=== PATIENT | female | born 1985 | race Caucasian/White ===

== ENCOUNTER 2017-01-16 13:35 | Emergency (ER) | payer BC ==
[2017-01-16 14:32] LABS: Hematocrit 35 % (35-47); Hemoglobin 11.4 g/dl (12.0-16.0); Mean Corpuscular HGB Conc 32 g/dl (31-36); Mean Corpuscular Hemoglobin 25 pg (27-31); Mean Corpuscular Volume 78 fL (80-97); Mean Platelet Volume 8 um3 (7.4-10.4); Red Blood Count 4.52 10^6/ul (4.0-5.4); Red Cell Distribution Width 16 % (10.5-15); White Blood Count 10.7 10^3/ul (3.5-10.8)
[2017-01-16] MEDS ORDERED: Ketorolac INJ* 30 MG/ML 1 ML VIAL IV ONE (14:54)
[2017-01-16] MEDS ORDERED: NS 0.9% 1000 ML* 1,000 ML IV ONE ×2 (14:54→17:10)
--- NOTE | 2017-01-16 15:12 | RAD ---
Indication: Abdominal pain. Real-time sonography of the pelvis was performed. The study was performed utilizing endovaginal technique. The uterus measures 8.1 x 3.3 x 5.6 cm. Endometrial echo measures 3 mm. Right ovary measures 3.3 x 1.9 x 2.8 cm with a follicle in the right ovary measuring up to 2.2 cm. Left ovary measures 3.2 x 1.1 x 1.1 mm. IMPRESSION: Follicle in the right ovary measuring up to 2.2 cm. No adnexal masses are noted.
[2017-01-16 15:15] LABS: ALT 11 U/L (7-52); AST 15 U/L (13-39); Albumin 4.1 g/dL (3.2-5.2); Alkaline Phosphatase 92 U/L (34-104); Anion Gap 9 mmol/L (2-11); BUN/Creatinine Ratio 13.4 (8-20); Blood Urea Nitrogen 9 mg/dL (6-24); C Reactive Protein 8.81 mg/L (< 5.00); CO2 Carbon Dioxide 23 mmol/L (22-32); Calcium 9.1 mg/dL (8.6-10.3); Chloride 106 mmol/L (101-111); EGFR African American 132.9 (>60); EGFR Non-African American 103.3 (>60); Globulin 3.1 g/dL (2-4); Glucose 101 mg/dL (70-100); Lipase 25 U/L (11.0-82.0); Potassium 3.4 mmol/L (3.5-5.0); Sodium 138 mmol/L (133-145); Total Protein 7.2 g/dL (6.4-8.9)
[2017-01-16 15:51] LABS: Urine Bilirubin Negative (Negative); Urine Glucose Negative (Negative); Urine Nitrite Negative (Negative)
[2017-01-16] MEDS ORDERED: Iohexol 300* (CONTRAST) 10 ML SDV IV ONE (17:34)
--- NOTE | 2017-01-16 20:48 | RAD ---
Indication: Lower abdominal pain, bloating. Contrast: Administered 91.0 ml of OMNIPAQUE 300 mg/ml CT of the abdomen and pelvis was performed without oral or IV contrast administration. Coronal and sagittal reconstructed images were obtained. Lung bases demonstrate no pleural fluid, nodules or masses. Heart is of normal size without evidence of pericardial effusion. Liver is normal in size. No focal lesions or intrahepatic ductal dilatation is noted. The gallbladder demonstrates no calcified gallstones. No pericholecystic fluid or wall thickening is identified. The common duct is not dilated. The pancreas demonstrates no mass or pancreatic duct dilatation. The spleen is normal in size. No adrenal lesions are noted. The kidneys demonstrate symmetric nephrograms without focal lesions. No retroperitoneal lymphadenopathy is noted. No dilated loops of bowel are noted. CT of the pelvis demonstrates no retroperitoneal or pelvic lymphadenopathy. The uterus and ovaries are unremarkable. No inguinal hernias are noted. The urinary bladder is otherwise unremarkable. The colon is filled with stool. Contrast is noted in the right colon with no evidence of bowel obstruction. IMPRESSION: No abnormal masses or fluid collections are identified.
--- NOTE | 2017-01-16 21:01 | ED ---
I, Lauri Carson, scribed for Mg Fajardo MD on 01/16/17 at 1647 . Progress - Progress Note Progress Note: This patient was signed out from Dr. Pickard, pending disposition, awaiting Transvaginal US. Pt has been experiencing intermittent abdominal pain for about a month. Transvaginal US, as read by radiologist, reveals: Follicle in the right ovary measuring up to 2.2 cm. No adnexal masses are noted.. Re-Evaluation - Re-Evaluation First Eval Re-Evaluation Time: 16:51 Comment: Discussed why she presents and that a CT abd/pel will be done. Course/Dx - Course Course Of Treatment: DISCUSSED RESULTS WITH PATIENT. SHE WILL F/U WITH PMD. - Diagnoses Provider Diagnoses: Abdominal pain The documentation as recorded by the Alli baptiste Nikita accurately reflects the service I personally performed and the decisions made by me, Mg Fajardo MD.
[2017-01-16 21:14] VITALS: BP 117/75
== END 2017-01-16 21:19 | disposition home or self-care (01) ==
LOC: ED 13:35
DX: R10.9 Unspecified abdominal pain (principal)
CPT/HCPCS: 36415; 74177; 76830; 80053; 81003; 83605; 83690; 84702; 85025; 86140; 99283; J1885; Q9967

== ENCOUNTER 2018-02-10 17:03 | Emergency (ER) | payer BC ==
[2018-02-10 17:12] VITALS: BP 116/80
--- NOTE | 2018-02-10 18:19 | RAD ---
INDICATION: Dorsal left foot pain after " struck foot on furniture COMPARISON: None. TECHNIQUE: 3 views of the left foot were obtained. FINDINGS: The adequately corticated bones are properly aligned. Joint spaces appear maintained. No fracture, dislocation or focal bony abnormality is seen. IMPRESSION: Normal radiograph of the left foot. If the patient's symptoms persist, follow-up imaging is recommended.
--- NOTE | 2018-02-10 18:23 | UC ---
Lower Extremity/Ankle HPI - HPI Summary HPI Summary: hit left foot on sofa yesterday entire foot is tender to touch - History of Current Complaint Chief Complaint: UCLowerExtremity Stated Complaint: FOOT INJURY Time Seen by Provider: 02/10/18 17:25 Hx Obtained From: Patient ?: No Onset/Duration: Sudden Onset, Lasting Days - 1 Pain Intensity: 5 Pain Scale Used: 0-10 Numeric Aggravating Factor(s): Standing, Ambulation Alleviating Factor(s): Rest Able to Bear Weight: Yes - Allergies/Home Medications Allergies/Adverse Reactions: Allergies Allergy/AdvReac Type Severity Reaction Status Date / Time Sulfa (Sulfonamide Allergy Hives Verified 02/10/18 17:12 Antibiotics) Home Medications: Home Medications NK [No Home Medications Reported] 02/10/18 [History Confirmed 02/10/18] PMH/Surg Hx/FS Hx/Imm Hx Previously Healthy: Yes Other History Of: Negative For: Anticoagulant Therapy - Surgical History Surgical History: None - Family History Known Family History: Positive: Hypertension, Diabetes Negative: Cardiac Disease - Social History Occupation: Employed Full-time Lives: With Family Alcohol Use: Rare Substance Use Type: None Smoking Status (MU): Heavy Every Day Tobacco Smoker Type: Cigarettes - Immunization History Most Recent Influenza Vaccination: 2011 Most Recent Tetanus Shot: within 2 years Review of Systems Constitutional: Negative Skin: Negative Eyes: Negative ENT: Negative Respiratory: Negative Cardiovascular: Negative Gastrointestinal: Negative Genitourinary: Negative Motor: Negative Neurovascular: Negative Musculoskeletal: Arthralgia - left foot Neurological: Negative Psychological: Negative Is Patient Immunocompromised?: No All Other Systems Reviewed And Are Negative: Yes Physical Exam Triage Information Reviewed: Yes Appearance: Well-Appearing, No Pain Distress, Well-Nourished Vital Signs: Initial Vital Signs Temp 99.1 F 02/10/18 17:08 Pulse 79 02/10/18 17:08 Resp 18 02/10/18 17:08 BP 116/80 02/10/18 17:08 Pulse Ox 98 02/10/18 17:08 Vital Signs Reviewed: Yes Eye Exam: Normal Eyes: Positive: Conjunctiva Clear ENT Exam: Normal ENT: Positive: Normal ENT inspection, Hearing grossly normal. Negative: Trismus , Muffled voice, Hoarse voice Dental Exam: Normal Neck exam: Normal Neck: Positive: Supple, Nontender Respiratory Exam: Normal Respiratory: Positive: Chest non-tender, No respiratory distress, No accessory muscle use Cardiovascular Exam: Normal Cardiovascular: Positive: RRR, Pulses Normal, Brisk Capillary Refill Musculoskeletal Exam: Normal Musculoskeletal: Positive: Strength Intact, ROM Intact, No Edema Neurological Exam: Normal Neurological: Positive: Alert, Muscle Tone Normal Psychological Exam: Normal Skin Exam: Normal Diagnostics - Radiology No standard instances Xray Interpretation: No Acute Changes Radiology Interpretation Completed By: ED Physician, Radiologist Lower Extremity Course/Dx - Course Course Of Treatment: meme wrap post op shoe tylenol/ibuprofen for pain rice follow with orthopedic MD PRN - Differential Dx/Diagnosis Provider Diagnoses: left foot contusion, nicotine dependant Discharge - Sign-Out/Discharge Documenting (check all that apply): Patient Departure All imaging exams completed and their final reports reviewed: Yes - Discharge Plan Condition: Stable Disposition: HOME Patient Education Materials: Ibuprofen (By mouth), Foot Contusion (ED), R.I.C.E. Treatment (ED) Forms: *Work Release Referrals: Boris Bain MD [Medical Doctor] - If Needed - Billing Disposition and Condition Condition: STABLE Disposition: Home
== END 2018-02-10 18:44 | disposition home or self-care (01) ==
LOC: UCEAST 17:03
DX: S90.32XA Contusion of left foot, initial encounter (principal); W22.03XA Walked into furniture, initial encounter; Y93.9 Activity, unspecified; Y92.9 Unspecified place or not applicable; Z88.2 Allergy status to sulfonamides; F17.210 Nicotine dependence, cigarettes, uncomplicated
CPT/HCPCS: 99213; G0463

== ENCOUNTER 2019-06-10 12:04 | Emergency (ER) | payer BC ==
[2019-06-10 12:30] VITALS: BP 129/86
[2019-06-10] MEDS ORDERED: Ketorolac *IM* INJ* 60 MG/2 ML VIAL IM ONE (13:59)
--- NOTE | 2019-06-10 13:59 | UC ---
Headache HPI - HPI Summary HPI Summary: PATIENT HAS A HISTORY OF MIGRAINE HEADACHES. NORMALLY TAKES SOME IBUPROFEN AND GOES TO SLEEP AND SYMPTOMS RESOLVE. HAS HAD 2 DAYS OF WAXING AND WANING SHARP HEADACHE THAT FEELS WORSE THAN HER NORMAL MIGRAINE. NO HEAD TRAUMA. IS REQUESTING A WORK NOTE. - History Of Current Complaint Chief Complaint: UCHeadache Stated Complaint: HEADACHE Time Seen by Provider: 06/10/19 13:22 Hx Obtained From: Patient Hx Last Menstrual Period: iud Onset/Duration: Sudden Onset, Lasting Days - 1 DAY, Still Present Onset Of Symptoms: Sudden Initially Headache Was: Severe Currently Pain Is: Moderate Pain Intensity: 7 Pain Scale Used: 0-10 Numeric Character: Sharp Location of Headache: Diffuse Aggravating Factor(s): Nothing Allevating Factor(s): Nothing Associated Signs And Symptoms: Negative: Dizziness, Nausea, Fever, Neck Pain, Decreased LOC, Visual Changes - Allergies/Home Medications Allergies/Adverse Reactions: Allergies Allergy/AdvReac Type Severity Reaction Status Date / Time Sulfa (Sulfonamide Allergy Hives Verified 06/10/19 12:31 Antibiotics) PMH/Surg Hx/FS Hx/Imm Hx Neurological History: Migraine Psychological History: Anxiety, Depression Other History Of: Negative For: Anticoagulant Therapy - Surgical History Surgical History: None - Family History Known Family History: Positive: Hypertension, Diabetes Negative: Cardiac Disease - Social History Alcohol Use: Rare Substance Use Type: None Smoking Status (MU): Heavy Every Day Tobacco Smoker Type: Cigarettes - Immunization History Most Recent Influenza Vaccination: 2011 Most Recent Tetanus Shot: within 2 years Review of Systems All Other Systems Reviewed And Are Negative: Yes Constitutional: Positive: Negative Skin: Positive: Negative Eyes: Positive: Negative Respiratory: Positive: Negative Cardiovascular: Positive: Negative Gastrointestinal: Positive: Negative Neurological: Positive: Headache Physical Exam Triage Information Reviewed: Yes Appearance: Well-Appearing, No Pain Distress, Well-Nourished Vital Signs: Initial Vital Signs Temp 98 F 06/10/19 12:28 Pulse 96 06/10/19 12:28 Resp 15 06/10/19 12:28 BP 129/86 06/10/19 12:28 Pulse Ox 99 06/10/19 12:28 Vital Signs Reviewed: Yes Eyes: Positive: Conjunctiva Clear, Other: - PERRL, EOMI ENT: Positive: Hearing grossly normal Neck: Positive: Supple Respiratory: Positive: No respiratory distress, No accessory muscle use Cardiovascular: Positive: Pulses Normal Abdomen Description: Positive: Soft Musculoskeletal: Positive: No Edema Neurological: Positive: Alert Psychological: Positive: Age Appropriate Behavior Skin: Negative: Rashes Diagnostics - Radiology CT HEAD W/O CONTRAST Radiology Interpretation Completed By: Radiologist Summary of Radiographic Findings: NO ACUTE INTRACRANIAL PATHOLOGY. Headache Course/Dx - Course Course Of Treatment: CT HEAD TODAY UNREMARKABLE. DISCUSSED WITH PATIENT THAT SHE MAY BENEFIT FROM DAILY PROPHYLACTIC TREATMENT FOR HER MIGRAINE HEADACHES. SHE'LL FOLLOW-UP WITH HER PCP TO FURTHER DISCUSS. ALSO ADVISED PATIENT TO GO TO THE ER WITHOUT FAIL IF HER SYMPTOMS WORSEN. 60MG TORADOL GIVEN IM TODAY. - Differential Dx/Diagnosis Provider Diagnosis: Migraine Discharge ED - Sign-Out/Discharge Documenting (check all that apply): Patient Departure All imaging exams completed and their final reports reviewed: Yes - Discharge Plan Condition: Stable Disposition: HOME Patient Education Materials: Migraine Headache (ED) Forms: *Work Release Referrals: Courtney Escboar [Primary Care Provider] - 3 Days Additional Instructions: CT HEAD TODAY UNREMARKABLE. YOU RECEIVED 60MG TORADOL INJECTION TODAY. REST, HYDRATE, OTC MEDS NEEDED. FOLLOW-UP WITH YOUR PCP TO DISCUSS PROPHYLACTIC TREATMENT FOR YOUR MIGRAINE HEADACHES. GO TO THE ED WITHOUT FAIL IF YOU DEVELOP UNEQUAL PUPILS, VISUAL DISTURBANCE, GAIT INSTABILITY, SPEECH DIFFICULTY, NAUSEA/VOMITING, WORSENING HEADACHE, DIZZINESS, CONFUSION, WEAKNESS OR ANY OTHER CONCERNING SYMPTOMS. - Billing Disposition and Condition Condition: STABLE Disposition: Home
== END 2019-06-10 14:45 | disposition home or self-care (01) ==
LOC: UCEAST 12:04
DX: G43.909 Migraine, unspecified, not intractable, without status migrainosus (principal); F17.210 Nicotine dependence, cigarettes, uncomplicated; Z88.2 Allergy status to sulfonamides
CPT/HCPCS: 70450; 96372; 99211; G0463; J1885